=== PATIENT | female | born 1955 | race Caucasian/White ===

== ENCOUNTER → 2021-11-22 | Outpatient (CLI) | payer MEDICARE, OTHER ==
[~2021-11-22] MED LIST: BRILINTA 90 MG90 MG PO; CARBIDOPA-LEVO1 EAC1 PO; CLARITIN10 MG PO; CRESTOR20 MG PO; ECOTRIN81 MG PO; FOSAMAX70 MG PO; ISORDIL TAB 2020 MG PO; METOPROLOL TART25 MG PO; NEURONTIN 400400 MG PO; NITROSTAT0.4 MG SL; PRINIVIL5 MG PO; PROBIOTIC1 EAC1 PO; RANEXA500 MG PO; RESTORIL15 MG PO; SENEXON-S TABL1 EACH PO; VITAMIN D250000 UNIT PO
== END ==
LOC: HEART CORB 09:48
DX: I77.9 Disorder of arteries and arterioles, unspecified (principal); R07.2 Precordial pain; I25.10 Atherosclerotic heart disease of native coronary artery without angina pectoris; Z95.5 Presence of coronary angioplasty implant and graft; Z95.1 Presence of aortocoronary bypass graft; I10 Essential (primary) hypertension; E78.5 Hyperlipidemia, unspecified; Z87.891 Personal history of nicotine dependence
CPT/HCPCS: 78452; A9502; J2785